=== PATIENT | female | born 1990 | race Caucasian/White ===

== ENCOUNTER 2017-04-20 13:44 | Emergency (ER) | payer OTHER ==
[~2017-04-20] VITALS: Ht 172.7 cm; Wt 71.4 kg
[2017-04-20 13:52] VITALS: TEMP 36.9; Ht 172.7 cm; Wt 71.4 kg
[2017-04-20] MEDS ORDERED: BCPILLS PO (15:06)
[2017-04-20] MEDS ORDERED: ONDANSETRON INJ 2 MG/ML 2 ML VIAL IV STA (15:09)
[2017-04-20] MEDS ORDERED: SODIUM CHLORIDE 0.9% 1000ML 1,000 ML IV STA (15:09)
[2017-04-20] MEDS ORDERED: MoRPHine SULFATE 10 MG/ML CARP/VIAL IV STA (15:09)
[2017-04-20] MEDS ORDERED: OPTIRAY 320 IV PRN (15:15)
[2017-04-20 15:17] LABS: BASO % 0.4 %; BASO ABS # 0.02 K/uL (0-0.2); EOS % 1.5 %; EOS ABS # 0.08 K/uL (0-0.5); HEMATOCRIT 41.9 % (37-47); IG# 0.01 K/uL (0.00-0.02); LYMPH % 28.6 %; LYMPH ABS # 1.54 K/uL (1.2-3.4); MEAN CELL VOLUME 90.1 fL (80-100); MEAN CORPUSCULAR HEMOGLOBIN 32.3 pg (25-34); MEAN CORPUSCULAR HGB CONC 35.8 g/dl (32-36); MEAN PLATELET VOLUME 10.8 fL (7.4-10.4); MONO % 12.6 %; MONO ABS # 0.68 K/uL (0.11-0.59); NEUT % 56.7 %; NEUT ABS # 3.05 K/uL (1.4-6.5); PLATELET COUNT 338 K/uL (130-400); RED CELL DISTRIBUTION WIDTH CV 12.5 % (11.5-14.5); RED CELL DISTRIBUTION WIDTH SD 40.8 fL (36.4-46.3); WHITE BLOOD COUNT 5.38 K/uL (4.8-10.8)
--- NOTE | 2017-04-20 15:18 | EMERGENCY ROOM VISIT NOTE ---
History Report prepared by Liu: Kalin Pacheco Under the Supervision of: Dr. Timur Leyva M.D. First contact with patient: 14:47 Chief Complaint: ABDOMINAL PAIN Stated Complaint: LOWER RIGHT ABDOMINAL PAIN History of Present Illness The patient is a 26 year old white female who presents to the ED with a cc of worsening abdominal pain beginning last night. She rates her discomfort as a 6/ 10 in severity. She describes the pain as a burning and sharp sensation. The patient reports she was experiencing nausea followed by diarrhea last night. The patient reports she then started to experience stabbing mid abdominal pain. She reports the pain worsened overnight and woke her up this morning. The patient states the pain moved to her right lower quadrant. Positive nausea. Negative falls, strains, heavy lifting, travel, sick contact, abdominal surgeries, recent antibiotic use, hematuria, urinary symptoms, vaginal discharge. The patient reports her last bowel movement was last night, which she reports was diarrhea. Source of History: patient Onset: last night Position: abdomen (RLQ) Symptom Intensity: 6/10 Quality: burning, stabbing Timing: worsening Associated Symptoms: + nausea, + diarrhea, No urinary symptoms Review of Systems See HPI for pertinent positives and negatives. A total of ten systems were reviewed and were otherwise negative. Past Medical & Surgical Medical Problems: (1) No known problems Family History FHx: gallbladder disease Heart disease Social History Smoking Status: Never Smoker Smokeless Tobacco Use: No Alcohol Use: none Drug Use: none Marital Status: Housing Status: lives with significant other Occupation Status: employed Current/Historical Medications Scheduled Control Pills ( Control Pills), 1 TAB PO DAILY Cephalexin (Keflex), 1 CAP PO BID Scheduled PRN Tramadol (Ultram), 50 MG PO Q4H PRN for Pain Allergies Coded Allergies: No Known Allergies (Unverified , 04/20/17) Physical Exam Vital Signs Date Time Temp Pulse Resp B/P (MAP) Pulse Ox O2 Delivery O2 Flow Rate FiO2 04/20/17 20:32 78 18 105/67 100 04/20/17 19:22 89 18 105/67 98 Room Air 04/20/17 17:08 97 18 107/76 100 Room Air 04/20/17 15:56 82 18 104/74 98 Room Air 04/20/17 14:55 103 20 102/69 99 Room Air 04/20/17 13:52 36.9 110 18 126/81 99 Physical Exam GENERAL: Awake, alert, uncomfortable appearing, in pain HENT: Normocephalic, atraumatic. EYES: Normal conjunctiva. Sclera non-icteric. NECK: Supple. No nuchal rigidity. FROM. RESPIRATORY: CTAB, no rhonchi, wheezing, crackles CARDIAC: RRR, no MRG ABDOMEN: Soft, RLQ suprapubic TTP, Positive obturator's, BS+ MSK: No chest wall TTP, no LE edema, No CVA tenderness NEURO: GCS 15, CN 2-12 intact, moves all 4s on command SKIN: No rash or jaundice noted. Medical Decision & Procedures ER Provider Diagnostic Interpretation: Radiology results as stated below per my review and radiologist interpretation: CHEST ONE VIEW PORTABLE CLINICAL HISTORY: Abdominal pain. COMPARISON STUDY: No previous studies for comparison. FINDINGS: Incidental note is made of an azygos fissure. There is no pneumothorax or pleural effusion. Slight asymmetric right lower lung opacity is likely artifactual. Cardiac size is normal. Mediastinal contours are normal. There is no evidence for pulmonary edema. IMPRESSION: No acute cardiopulmonary findings. Electronically signed by: Slick Goetz M.D. 04/20/2017 3:36 PM Dictated Date/Time: 04/20/2017 3:[address] OF THE ABDOMEN AND PELVIS WITH CONTRAST CLINICAL HISTORY: Right lower quadrant pain. COMPARISON STUDY: None. TECHNIQUE: Following IV administration of 116 mL of Optiray-320, axial images of the abdomen and pelvis were obtained from the lung bases to the proximal femurs. Images were reviewed in the axial, sagittal, and coronal planes. IV contrast was administered without complication. A dose lowering technique was utilized adhering to the principles of ALARA. CT DOSE: 320.74 mGy.cm FINDINGS: Lung bases are clear. The liver, spleen, adrenal gland, kidneys and pancreas are normal. There is no biliary or pancreatic ductal dilatation with there is no hydronephrosis or hydroureter. There are no ureteral calculi. Caliber and wall thickness of small and large bowel are normal. The appendix is normal. There is no lymphadenopathy or ascites. There is a 1.5 cm dominant follicle within the right ovary. The ovaries are not enlarged. No suspicious skeletal lesions are identified. Trace fluid within the pelvis is likely physiologic. IMPRESSION: 1. Normal appendix. 2. No acute process within the abdomen or pelvis. 3. 1.5 cm dominant follicle within the right ovary. 3. Trace free fluid within the pelvis which is likely physiologic. Electronically signed by: Slick Goetz M.D. 04/20/2017 5:15 PM Dictated Date/Time: 04/20/2017 5:10 PM TRANSVAG-FEMALE PELVIS CLINICAL HISTORY: R sided ab pain COMPARISON STUDY: CT of the abdomen and pelvis performed earlier today. FINDINGS: The uterus measures 7 x 3.5 x 4.3 cm. Endometrium measures 5 mm in thickness. The left ovary is sonographically normal. It measures 3.8 x 2.2 x 2.4 cm. The right ovary measures 4.3 x 2.1 x 2.7 cm and contains a dominant 1.5 cm follicle. Color flow is identified within each ovary. There is trace free fluid. IMPRESSION: 1. Unremarkable pelvic ultrasound. 2. 1.5 cm dominant follicle within the right ovary. 3. Trace free pelvic fluid which is likely physiologic. Electronically signed by: Slick Goetz M.D. 04/20/2017 7:20 PM Dictated Date/Time: 04/20/2017 7:18 PM Laboratory Results 04/20/17 14:50 Red Blood Count 4.65, Mean Corpuscular Volume 90.1, Mean Corpuscular Hemoglobin 32.3, Mean Corpuscular Hemoglobin Concent 35.8, Mean Platelet Volume 10.8, Neutrophils (%) (Auto) 56.7, Lymphocytes (%) (Auto) 28.6, Monocytes (%) (Auto) 12.6, Eosinophils (%) (Auto) 1.5, Basophils (%) (Auto) 0.4, Neutrophils # (Auto ) 3.05, Lymphocytes # (Auto) 1.54, Monocytes # (Auto) 0.68, Eosinophils # (Auto ) 0.08, Basophils # (Auto) 0.02 04/20/17 14:50 Test 04/20/17 13:00 04/20/17 14:50 Urine Color YELLOW Urine Appearance CLOUDY (CLEAR) Urine pH 6.5 (4.5-7.5) Urine Specific [place] 1.018 (1.000-1.030) Urine Protein NEG (NEG) Urine Glucose (UA) NEG (NEG) Urine Ketones 1+ (NEG) Urine Occult Blood 1+ (NEG) Urine Nitrite NEG (NEG) Urine Bilirubin NEG (NEG) Urine Urobilinogen NEG (NEG) Urine Leukocyte Esterase SMALL (NEG) Urine WBC (Auto) 10-30 /hpf (0-5) Urine RBC (Auto) 5-10 /hpf (0-4) Urine Hyaline Casts (Auto) 1-5 /lpf (0-5) Urine Epithelial Cells (Auto) >30 /lpf (0-5) Urine Bacteria (Auto) 2+ (NEG) Urine Renal Epithelial Cells 0-5 /lpf (0-5) Urine Pathogenic Casts /lpf (0) Urine Mucus PRESENT (NONE PRSENT) Urine Test NEG (NEG) White Blood Count 5.38 K/uL (4.8-10.8) Red Blood Count 4.65 M/uL (4.2-5.4) Hemoglobin 15.0 g/dL (12.0-16.0) Hematocrit 41.9 % (37-47) Mean Corpuscular Volume 90.1 fL (80-100) Mean Corpuscular Hemoglobin 32.3 pg (25-34) Mean Corpuscular Hemoglobin Concent 35.8 g/dl (32-36) Platelet Count 338 K/uL (130-400) Mean Platelet Volume 10.8 fL (7.4-10.4) Neutrophils (%) (Auto) 56.7 % Lymphocytes (%) (Auto) 28.6 % Monocytes (%) (Auto) 12.6 % Eosinophils (%) (Auto) 1.5 % Basophils (%) (Auto) 0.4 % Neutrophils # (Auto) 3.05 K/uL (1.4-6.5) Lymphocytes # (Auto) 1.54 K/uL (1.2-3.4) Monocytes # (Auto) 0.68 K/uL (0.11-0.59) Eosinophils # (Auto) 0.08 K/uL (0-0.5) Basophils # (Auto) 0.02 K/uL (0-0.2) RDW Standard Deviation 40.8 fL (36.4-46.3) RDW Coefficient of Variation 12.5 % (11.5-14.5) Immature Granulocyte % (Auto) 0.2 % Immature Granulocyte # (Auto) 0.01 K/uL (0.00-0.02) Anion Gap 10.0 mmol/L (3-11) Est Creatinine Clear Calc Drug Dose 132.5 ml/min Estimated GFR () 143.3 Estimated GFR (Non- 123.6 BUN/Creatinine Ratio 11.7 (10-20) Calcium Level 9.2 mg/dl (8.5-10.1) Total Bilirubin 0.6 mg/dl (0.2-1) Direct Bilirubin 0.1 mg/dl (0-0.2) Aspartate Amino Transf (AST/SGOT) 15 U/L (15-37) Alanine Aminotransferase (ALT/SGPT) 21 U/L (12-78) Alkaline Phosphatase 64 U/L (45-117) Total Protein 8.1 gm/dl (6.4-8.2) Albumin 3.9 gm/dl (3.4-5.0) Lipase 115 U/L (73-393) Laboratory results reviewed by me Medications Administered Medications (Trade) Dose Ordered Sig/Jose Raul Route Start Time Stop Time Status Last Admin Dose Admin Sodium Chloride 1,000 ml @ 999 mls/hr Q1H1M STAT IV 04/20/17 15:09 04/20/17 16:09 DC 04/20/17 15:18 999 MLS/HR Ondansetron HCl (Zofran Inj) 4 mg NOW STAT IV 04/20/17 15:09 04/20/17 15:12 DC 04/20/17 15:18 4 MG Morphine Sulfate (MoRPHine SULFATE INJ) 8 mg NOW STAT IV 04/20/17 15:09 04/20/17 15:12 DC 04/20/17 15:17 8 MG Hydromorphone HCl (Dilaudid Inj) 0.5 mg NOW STAT IV 04/20/17 16:47 04/20/17 16:48 DC 04/20/17 17:06 0.5 MG Ceftriaxone Sodium (Rocephin Inj) 1 gm NOW STAT IV 04/20/17 17:29 04/20/17 17:31 DC 04/20/17 17:39 1 GM Ketorolac Tromethamine (Toradol Inj) 30 mg NOW STAT IV 04/20/17 19:55 04/20/17 19:56 DC 04/20/17 20:03 30 MG Acetaminophen/ Hydrocodone Bitart ([place] 10/325 Tab) 1 tab ONE STAT PO 04/20/17 19:55 04/20/17 19:56 MO 04/20/17 20:03 1 TAB ED Course 1506: The patient was evaluated in room A02. A complete history and physical exam was performed. 1800: I reevaluated the patient and she is better. I updated her on the results. 1999: I reevaluated the patient. Discussed results and discharge instructions: She verbalized understanding and agreement. The patient is ready for discharge. Medical Decision Triage Nursing notes reviewed. The patient is a 26 year old white female who presents to the ED with a cc of worsening abdominal pain beginning last night. She rates her discomfort as a 6/ 10 in severity. The patient's presentation and history were concerning for but not limited to appendicitis, ovarian pathology, mesenteric adenitis, UTI, pyelo. Patient was seen and evaluated the bedside. Patient had been complaining of some periumbilical discomfort that had worsened and was more located in the right lower quadrant. Patient did complain of some nausea without vomiting. Patient did have some loose stools. Patient states that her LMP was several weeks prior. Patient denied any hematuria, vaginal bleeding or vaginal discharge. Patient denied any recent travel, antibiotic use, or sick contacts. On exam the patient did have right lower quadrant tenderness. Patient had a positive obturator's and psoas sign. Patient had no CVA tenderness to palpation. Patient did have blood work completed along with a CT of the abdomen pelvis, urinalysis, and urine test. Patient's urinalysis was questionable for infection. The patient was given Rocephin. She is other blood work is fairly unremarkable. The patient CT the abdomen pelvis showed a normal appendix but a dominant right follicle. Patient was informed of these findings and the patient was still having some pain so a transvaginal ultrasound was obtained. Patient's transvaginal ultrasound did show the follicle but without any cyst and showed good flow to both ovaries. Patient was informed of all findings. Patient may be suffering from some ovulatory discomfort and pain. Patient's pain had improved. 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 Patient was agreeable to this plan of care. Patient was told return if she had any worsening or concerning symptoms. Patient was given strict follow-up, discharge, and return precautions. All questions were answered. Patient was deemed suitable for outpatient follow-up at this time. Patient agreed with the plan of care and was safely discharged home. Medication Reconcilliation Current Medication List: was personally reviewed by me Blood Pressure Screening Patient's blood pressure: Normal blood pressure Impression Primary Impression: Ovulatory pain Additional Impressions: RLQ abdominal pain UTI (urinary tract infection) Scribe Attestation The scribe's documentation has been prepared under my direction and personally reviewed by me in its entirety. I confirm that the note above accurately reflects all work, treatment, procedures, and medical decision making performed by me. Departure Information Dispostion Home / Self-Care Prescriptions Cephalexin (KEFLEX) 500 Mg Cap 1 CAP PO BID for 7 Days, #14 CAP Prov: Timur Leyva M.D. 04/20/17 Tramadol (Ultram) 50 Mg Tab 50 MG PO Q4H Y for Pain, #12 TAB Prov: Timur Leyva M.D. 04/20/17 Referrals No Doctor, Assigned (PCP) [facility] Patient Instructions ED Mid Cycle Pain Sunday, ANALISA UTI Cystitis Female, My [facility] Additional Instructions Please return to the emergency department if you have worsening or recurrent symptoms not amenable to at-home treatment. Please call for a follow-up appointment with her primary care physician. Please take your medications as prescribed. If you have other concerns and/or complaints please feel free to also call your primary care physician's office or return the ED for further evaluation, management, and treatment. You were found to have an elevated blood pressure today (>120 sytolic or >90 diastolic). Per medicare guidelines, you need to follow up with this blood pressure screening with your Primary Care Physician (PCP). For a new PCP call [phone]. You received narcotic or benzodiazepene medication while in the emergency room today. This is an addictive medication that may cause drowziness as well as constipation. Do not drive, operate heavy machinery, or drink alcohol under the influence of this medication. You may take 600 mg Ibuprofen every 6 hours as needed for pain with food for no more than 2-3 consecutive days. You may take tylenol 1000 mg every 6 hours as needed for pain. You may take motrin and tylenol separately or at the same time. If you still have discomfort try taking the tramadol. It is a sedating medication so please use with caution. Take your medications as prescribed. If taking an antibiotic consider taking a probiotic and/or eating yogurt, but at the least, please take with food as it can cause upset stomach. If culture results are not available at discharge, if they are positive for concern of infection, you will be informed of the results as soon as they are available. Please follow-up with your LEAVE COORDINATOR physician at [facility]. You have been examined and treated today on an emergency basis only. This is not a substitute for, or an effort to provide, complete comprehensive medical care. It is impossible to recognize and treat all injuries or illnesses in a single emergency department visit. It is therefore important that you follow up closely with [facility], your PCP, and/or your specialist(s). Call as soon as possible for an appointment. Thank you for your time and consideration. I look forward to speaking with you again soon. Please don't hesitate to call us if you have any questions. Problem Qualifiers Additional Impressions: UTI (urinary tract infection) Urinary tract infection type: acute cystitis Hematuria presence: without hematuria Qualified Codes: N30.00 - Acute cystitis without hematuria
[2017-04-20 15:25] LABS: ALBUMIN 3.9 gm/dl (3.4-5.0); CALCIUM 9.2 mg/dl (8.5-10.1); CREATININE 0.66 mg/dl (0.60-1.20); POTASSIUM 3.7 mmol/L (3.5-5.1)
[2017-04-20 15:28] LABS: TOTAL PROTEIN 8.1 gm/dl (6.4-8.2)
--- NOTE | 2017-04-20 15:37 | DIAGNOSTIC IMAGING REPORT ---
CHEST ONE VIEW PORTABLE CLINICAL HISTORY: Abdominal pain. COMPARISON STUDY: No previous studies for comparison. FINDINGS: Incidental note is made of an azygos fissure. There is no pneumothorax or pleural effusion. Slight asymmetric right lower lung opacity is likely artifactual. Cardiac size is normal. Mediastinal contours are normal. There is no evidence for pulmonary edema. IMPRESSION: No acute cardiopulmonary findings. Electronically signed by: Slick Goetz M.D. 04/20/2017 3:36 PM Dictated Date/Time: 04/20/2017 3:35 PM
[2017-04-20] MEDS ORDERED: HYDROmorphone INJ 0.5 MG/0.5 ML SYR IV STA (16:47)
--- NOTE | 2017-04-20 17:16 | DIAGNOSTIC IMAGING REPORT ---
CT OF THE ABDOMEN AND PELVIS WITH CONTRAST CLINICAL HISTORY: Right lower quadrant pain. COMPARISON STUDY: None. TECHNIQUE: Following IV administration of 116 mL of Optiray-320, axial images of the abdomen and pelvis were obtained from the lung bases to the proximal femurs. Images were reviewed in the axial, sagittal, and coronal planes. IV contrast was administered without complication. A dose lowering technique was utilized adhering to the principles of ALARA. CT DOSE: 320.74 mGy.cm FINDINGS: Lung bases are clear. The liver, spleen, adrenal gland, kidneys and pancreas are normal. There is no biliary or pancreatic ductal dilatation with there is no hydronephrosis or hydroureter. There are no ureteral calculi. Caliber and wall thickness of small and large bowel are normal. The appendix is normal. There is no lymphadenopathy or ascites. There is a 1.5 cm dominant follicle within the right ovary. The ovaries are not enlarged. No suspicious skeletal lesions are identified. Trace fluid within the pelvis is likely physiologic. IMPRESSION: 1. Normal appendix. 2. No acute process within the abdomen or pelvis. 3. 1.5 cm dominant follicle within the right ovary. 3. Trace free fluid within the pelvis which is likely physiologic. Electronically signed by: Slick Goetz M.D. 04/20/2017 5:15 PM Dictated Date/Time: 04/20/2017 5:10 PM
[2017-04-20] MEDS ORDERED: CEFTRIAXONE SOD INJ 1 GM ADDVIAL IV STA (17:29)
--- NOTE | 2017-04-20 19:21 | DIAGNOSTIC IMAGING REPORT ---
TRANSVAG-FEMALE PELVIS CLINICAL HISTORY: R sided ab pain COMPARISON STUDY: CT of the abdomen and pelvis performed earlier today. FINDINGS: The uterus measures 7 x 3.5 x 4.3 cm. Endometrium measures 5 mm in thickness. The left ovary is sonographically normal. It measures 3.8 x 2.2 x 2.4 cm. The right ovary measures 4.3 x 2.1 x 2.7 cm and contains a dominant 1.5 cm follicle. Color flow is identified within each ovary. There is trace free fluid. IMPRESSION: 1. Unremarkable pelvic ultrasound. 2. 1.5 cm dominant follicle within the right ovary. 3. Trace free pelvic fluid which is likely physiologic. Electronically signed by: Slick Goetz M.D. 04/20/2017 7:20 PM Dictated Date/Time: 04/20/2017 7:18 PM
[2017-04-20] MEDS ORDERED: KETOROLAC TROMETHAMINE 30 MG/ML VIAL IV STA (19:55)
[2017-04-20] MEDS ORDERED: HYDROCODONE/ACETAMI 10/325 TAB PO STA (19:55)
[2017-04-20] MEDS ORDERED: TRAM-10 PO (20:11)
[2017-04-20] MEDS ORDERED: CEPH-571 PO (20:15)
[2017-04-20 20:32] VITALS: BP 105/67; PULSE 78; O2SAT 100
== END 2017-04-20 20:34 | disposition home or self-care (01) ==
LOC: EDBD 13:46 → C.EDB 13:46 → C.EDA 20:34
DX: N94.0 Mittelschmerz (principal); R10.31 Right lower quadrant pain; N30.00 Acute cystitis without hematuria; Z79.3 Long term (current) use of hormonal contraceptives